=== PATIENT | female | born 1975 | race Two or more races ===

== ENCOUNTER 2024-05-25 15:56 | Emergency (ER) | payer OTHER, SELFPAY ==
[2024-05-25 16:09] VITALS: BP 179/105
[2024-05-25 19:00] VITALS: BP 156/99
[2024-05-25 20:06] LABS: % Basophils 0.9 % (0-2); % Eosinophils 2.3 % (0-6); % Immature Granulocytes 0.6 % (0-0.5); % Lymphocytes 24.6 % (20.5-51.1); % Monocytes 5.5 % (1.7-9.3); % Neutrophils 66.1 % (42.2-75.2); Absolute Basophils 0.1 10^3/uL (0-0.2); Absolute Eosinophils 0.3 10^3/uL (0-0.7); Absolute Immature Granulocytes 0.1 10^3/uL (0-0.05); Absolute Lymphocytes 2.9 10^3/uL (1.2-3.4); Absolute Monocytes 0.6 10^3/uL (0.1-0.6); Absolute Neutrophils 7.6 10^3/uL (1.4-6.5); Hematocrit 29.3 % (37.0-47.0); Hemoglobin 8.5 g/dL (12.0-16.0); Mean Corpuscular Hgb 18.2 pg (27.0-31.0); Mean Corpuscular Volume 62.7 fL (81.0-99.0); Mean Platelet Volume 8.8 fL (7.4-10.4); Nucleated Red Blood Cells % 0 %; Platelet Count 575 10^3/uL (130-400); Red Blood Cell Count 4.67 10^6/uL (4.20-5.40); Red Cell Dist. Width 19.2 % (11.5-14.5); White Blood Cell Count 11.6 10^3/uL (4.8-10.8)
[2024-05-25 20:16] LABS: HCG, Serum Qualitative Screen Negative
[2024-05-25 20:25] LABS: ALT (SGPT) 21 U/L (0-35); AST (SGOT) 20 U/L (14-36); Albumin 4.4 g/dl (3.5-5.0); Alkaline Phosphatase 118 U/L (38-126); Blood Urea Nitrogen 10 mg/dl (7-17); Calcium 9.1 mg/dl (8.4-10.2); Carbon Dioxide 26 mmol/L (22-30); Chloride 102 mmol/L (98-107); Glucose 97 mg/dl (70-99); Potassium 4.2 mmol/L (3.5-5.1); Sodium 137 mmol/L (135-145); Total Bilirubin 0.3 mg/dl (0.2-1.3); Total Protein 7.7 g/dl (6.3-8.2); eGFR > 60.00
[2024-05-25 20:29] LABS: Troponin I < 0.012 ng/ml
[2024-05-25 21:26] VITALS: BP 154/91
--- NOTE | 2024-05-25 21:27 | ED.GENMED ---
History of Present Illness
General
Chief Complaint: Blood Pressure Problem
Time Seen by Provider: 05/25/24 20:58
History of Present Illness
History of Present Illness:
49-year-old female without significant past medical history presenting for concern of high blood pressure. Patient reports for the past 4 days she has noticed that her blood pressure has been elevated. She has been having some headaches, which
prompted her to take her blood pressure, running in the 150s to 170s systolic range. She is not on any antihypertensive medications. She called her primary care doctor who advised that she come to the hospital. She does note that she did have
some blurry vision which has since resolved. She denies chest pain, difficulty breathing, weakness, numbness to extremities. She denies abdominal pain or GI symptoms. She denies any recent injury or trauma. She denies additional acute medical
complaints.
Past History
Past History
ED Past Medical History: None
ED Past Surgical History: None
Phy Exam
Physical Exam
Physical Exam:
General: Well-appearing, no clinical signs of dehydration, nontoxic and in no acute distress
HEENT: protecting airway
Neck: appears supple
CV: Normal heart rate, regular rhythm
Resp: No accessory muscle use, no increased work of breathing, lungs clear to auscultation bilaterally
Abd: No tenderness
Extremities: No deformities, no swelling
Neuro: alert, no focal neurologic deficit
: deferred
Rectal: deferred
Psych: Normal affect
Skin: Intact
Course
Orders/Labs/Results
Orders:
Orders
05/25/24 16:11
Electrocardiogram (*1) Urgent
Reason for Study: Hypertension, Benign
CT Head W/o Iv Contrast Urgent
Comment:
Reason For Exam: headache/blurry vision
EKG- Treatment ONCE
05/25/24 16:12
Test Result ONCE
05/25/24 19:43
Complete Blood Count/With Diff Urgent
Comprehensive Metabolic Panel Urgent
HCG, Serum Qualitative Screen Urgent
Troponin I Urgent
Abnormal Lab Results
05/25/24
19:43
WBC 11.6 H 10^3/uL
(4.8-10.8)
Hgb 8.5 L g/dL
(12.0-16.0)
Hct 29.3 L %
(37.0-47.0)
MCV 62.7 L fL
(81.0-99.0)
MCH 18.2 L pg
(27.0-31.0)
MCHC 29.0 L g/dL
(33.0-37.0)
RDW 19.2 H %
(11.5-14.5)
Plt Count 575 H 10^3/uL
(130-400)
Abs Immat Gran (auto) 0.1 H 10^3/uL
(0-0.05)
Absolute Neuts (auto) 7.6 H 10^3/uL
(1.4-6.5)
Immature Gran % 0.6 H %
(0-0.5)
Creatinine 0.5 L mg/dL
(0.6-1.0)
05/25/24 19:43
05/25/24 19:43
Vital Signs
Initial and Last Documented VS:
Initial Vital Signs
Temp Pulse Resp BP Pulse Ox
98.1 F 110 20 179/105 99
05/25/24 16:09 05/25/24 16:09 05/25/24 16:09 05/25/24 16:09 05/25/24 16:09
Last Documented Vital Signs
Temp Pulse Resp BP Pulse Ox
98.1 F 87 16 154/91 97
05/25/24 16:09 05/25/24 21:26 05/25/24 21:26 05/25/24 21:26 05/25/24 21:26
MDM/Problems Addressed
MDM/Problems Addressed:
49-year-old female presenting for concern of elevated blood pressure. Vital signs on arrival are significant for mild hypertension.
On exam patient is resting comfortably, no acute distress or discomfort. Patient currently denying any headache, visual changes, or acute medical complaints. Unremarkable cardiac, pulmonary exam. No focal neurologic deficits on exam. At this
time without concern for hypertensive urgency or emergency. No concern for central neurologic process. Patient had screening assessment prior to my examination, with blood work and CT brain imaging. Labs unremarkable without any evidence of
endorgan dysfunction. CT brain without acute intracranial abnormality. Do suspect some underlying diagnosis of high blood pressure. Ultimately feel stable for discharge with close and will follow-up with primary care doctor for blood pressure
recheck. Strict return precautions communicated patient verbalized understanding
*EKG
Interpreted by ED Provider?: Yes
EKG Intrepretation Date: 05/25/24
EKG Intrepretation Time: 21:30
Interpretation: normal
Comparison EKG: no changes (05/20/22)
Heart Rate: 88
Rate: normal
Rhythm: sinus
[place]: normal axis
Interval: normal interval
QRS Pattern: normal QRS
Ischemia: no ischemia
*Critical Care Note
Total Time (30-74mins, 75-104mins- exclusive of procedures): Not Applicable
ED Attending Note
-
Portions of this chart may have been created with voice recognition software.� Occasional wrong word or��sound alike� substitutions may have occurred due to the inherent limitations of voice recognition software.
Discharge Plan
Departure
Patient Disposition: Home (Routine Discharge)
Date of Disposition: 05/25/24
Time of Disposition: 21:31
Patient with high blood pressure during this ER visit?: Yes
Condition: Good
Discharge Problem:
Hypertension
Instructions: BLOOD PRESSURE
Prescriptions:
No Action
No Current Medications
0
Referrals:
Blore,Jose M., MD [Family Provider] -
Activity Restrictions/Additional Instructions:
You were seen in the emergency department for high blood pressure
You were found to have mildly elevated blood pressure, however normal EKG, blood work, CT imaging of your brain. Please follow-up with your primary care doctor for recheck of your blood pressure.
Please follow-up closely with your primary care physician.
Return to the emergency department for any worsening of your symptoms, or any development of chest pain, difficulty breathing, abdominal pain with persistent vomiting and inability to tolerate food or liquid by mouth (concern for dehydration),
weakness, headache or confusion, fever greater than 100.4, or any additional symptoms that are concerning to you.
Thank you for choosing [facility].
Interventions
Interventions:
*Risk Screen - Suicide Last Done: 05/25/24 20:42
*General Assessment Last Done: 05/25/24 16:09
*Neglect/Abuse Screening Last Done: 05/25/24 20:42
*ED COVID-19 Vaccine History Last Done: 05/25/24 20:42
ED- Cardiac Assessment Last Done: 05/25/24 20:43
ED- Neurological Assessment Last Done: 05/25/24 20:43
ED- Pulmonary Assessment Last Done: 05/25/24 20:43
Discharge Date and Time
Print Language: TONGAN
== END 2024-05-25 21:43 | disposition home or self-care (01) ==
LOC: EMR 15:56
PROVIDERS: Physician Assistant Medical; EMERGENCY PHYSICIAN Student in an Organized Health Care Education/Training Program; FAMILY PHYSICIAN Family Medicine
DX: I10 Essential (primary) hypertension (principal); R51.9 Headache, unspecified
CPT/HCPCS: 99284; 70450; 80053; 84484; 84703; 85025; 93005